=== PATIENT | female | born 1930 | race Caucasian/White ===

== ENCOUNTER 2016-11-11 02:05 | Emergency (ER) | payer MEDICARE, MEDICAID ==
[2016-11-11 02:25] VITALS: BP 157/87
[2016-11-11 02:53] LABS: CHLORIDE,CL 106 mmol/L (98-107); SODIUM,NA 142 mmol/L (136-145)
--- NOTE | 2016-11-11 03:30 | EDM.PDOC ---
ED HPI GENERAL MEDICAL PROBLEM - General Chief Complaint: Respiratory Problem Stated Complaint: Prior Hypoxia Time Seen by Provider: 11/11/16 02:15 Source of Information: Reports: Family, Long Term Records History Limitations: Reports: Altered Mental Status, Language Barrier - History of Present Illness INITIAL COMMENTS - FREE TEXT/NARRATIVE: Patient is a 86-year-old who was brought into the emergency room for evaluation status post Botox hypoxia her saturations were down in the higher 80s and because of this it was felt that the shelter that she should be reevaluated she was placed on 1 L oxygen and her saturations did improve to 96% at the shelter at this time we are concerned about her strong smell smelling urine multiple Calvin catheter attempts were done unsuccessful so therefore we discontinued the order Onset: Today, Sudden Duration: Hour(s): Severity: Mild Worsens with: Reports: None Context: Reports: Sick Contact Treatments [employer]: Reports: Oxygen - Related Data Allergies Allergy/AdvReac Type Severity Reaction Status Date / Time ciprofloxacin [From Cipro] Allergy Cannot Verified 11/11/16 02:13 Remember nitrofurantoin Allergy Cannot Verified 11/11/16 02:13 [From Macrodantin] Remember ED ROS GENERAL - Review of Systems Review Of Systems: See Below Constitutional: Reports: No Symptoms HEENT: Reports: No Symptoms Respiratory: Reports: Other (Hypoxia) Cardiovascular: Reports: No Symptoms Endocrine: Reports: No Symptoms GI/Abdominal: Reports: Anorexia, Constipation : Reports: Incontinence, Other (Stone urine smell) Musculoskeletal: Reports: Other (Patient unable to ambulate) Skin: Reports: No Symptoms Neurological: Reports: Weakness (Dementia), Other (Dementia) Psychiatric: Reports: Agitation, Anxiety, Confusion Hematologic/Lymphatic: Reports: No Symptoms Immunologic: Reports: No Symptoms ED EXAM, GENERAL - Physical Exam Exam: See Below Exam Limited By: Other (Patient is unable to communicate verbally) Ears: Normal External Exam, Normal Canal, Hearing Grossly Normal, Normal TMs Nose: Normal Inspection, Normal Mucosa, No Blood Throat/Mouth: Normal Inspection, Normal Lips, Normal Teeth, Normal Gums, Normal Oropharynx, Normal Voice, No Airway Compromise Head: Atraumatic, Normocephalic Neck: Normal Inspection, Supple, Non-Tender, Full Range of Motion Respiratory/Chest: Decreased Breath Sounds, Crackles Cardiovascular: Normal Peripheral Pulses, Regular Rate, Rhythm, No Edema, No Gallop, No JVD, No Murmur, No Rub GI/Abdominal: Normal Bowel Sounds (Female) Exam: Normal External Exam, Other (Difficulty placing a Clavin catheter) Rectal (Female) Exam: Deferred Back Exam: Normal Inspection, Full Range of Motion, NT Extremities: Other (Patient is very spastic) Neurological: Disoriented, Unresponsive Psychiatric: Flat Affect Skin Exam: Warm, Dry, Intact, Normal Color, No Rash Course - Vital Signs Last Recorded V/S: Last Vital Signs Temp 97.0 F 11/11/16 02:05 Pulse 59 L 11/11/16 02:05 Resp 20 11/11/16 02:05 BP 157/87 H 11/11/16 02:05 Pulse Ox 96 11/11/16 02:05 - Orders/Labs/Meds Orders: Active Orders 24 hr Category Date Time Status Insert Urinary Catheter [OM.PC] Q24H Care 11/11/16 02:30 Ordered Urinary Catheter Assessment [RC] ASDIRECTED Care 11/11/16 02:19 Active Chest 1V Frontal [CR] Stat Exams 11/11/16 02:16 Ordered CULTURE BLOOD [BC] Stat Lab 11/11/16 02:30 Received CULTURE URINE [RM] Stat Lab 11/11/16 02:17 Uncollected UA W/MICROSCOPIC [URIN] Stat Lab 11/11/16 02:17 Uncollected Labs: Laboratory Tests 11/11/16 11/11/16 Range/Units 02:30 02:30 WBC 8.9 (4.0-10.2) K/uL RBC 4.09 (3.77-5.09) M/uL Hgb 12.0 (11.7-15.5) g/dL Hct 38.3 (34.0-46.0) % MCV 93.6 (84.0-98.0) fL MCH 29.3 (28.2-33.3) pg MCHC 31.3 L (31.7-36.0) g/dL RDW 15.4 H (11.2-14.1) % Plt Count 230 (150-350) K/uL Neut % (Auto) 68.1 (45.0-80.0) % Lymph % (Auto) 23.0 (10.0-50.0) % [place] % (Auto) 6.8 (2.0-14.0) % Eos % (Auto) 2.0 (0.0-5.0) % Baso % (Auto) 0.1 (0.0-2.0) % Neut # (Auto) 6.08 (1.40-7.00) K/uL Lymph # (Auto) 2.06 (0.50-3.50) K/uL [place] # (Auto) 0.61 (0.00-1.00) K/uL Eos # (Auto) 0.18 (0.00-0.50) K/uL Baso # (Auto) 0.01 (0.00-0.20) K/uL Sodium 142 (136-145) mmol/L Potassium 3.9 (3.5-5.1) mmol/L Chloride 106 (98-107) mmol/L Carbon Dioxide 31.0 (21.0-32.0) mmol/L BUN 24 H (7-18) mg/dL Creatinine 0.69 (0.51-1.17) mg/dL Est Cr Clr Drug Dosing 48.67 mL/min Estimated GFR (MDRD) > 60 mL/min Glucose 93 (74-106) mg/dL Calcium 9.1 (8.5-10.1) mg/dL Departure - Departure Time of Disposition: 03:34 Disposition: Home, Self-Care 01 Clinical Impression: Pneumonia Qualifiers: Pneumonia type: aspiration pneumonia Laterality: left Lung location: unspecified part of lung - Discharge Information Referrals: Leonie Padlila MD [Primary Care Provider] - Care Plan Goals: Plan at this time we'll send her home on Y spectrum antibiotic there is a small infiltrate on the left lung which will go ahead and treat - My Orders Last 24 Hours: My Active Orders 11/11/16 02:16 Chest 1V Frontal [CR] Stat 11/11/16 02:17 CULTURE URINE [RM] Stat UA W/MICROSCOPIC [URIN] Stat 11/11/16 02:19 Urinary Catheter Assessment [RC] ASDIRECTED 11/11/16 02:30 Insert Urinary Catheter [OM.PC] Q24H CULTURE BLOOD [BC] Stat - Assessment/Plan Last 24 Hours: My Active Orders 11/11/16 02:16 Chest 1V Frontal [CR] Stat 11/11/16 02:17 CULTURE URINE [RM] Stat UA W/MICROSCOPIC [URIN] Stat 11/11/16 02:19 Urinary Catheter Assessment [RC] ASDIRECTED 11/11/16 02:30 Insert Urinary Catheter [OM.PC] Q24H CULTURE BLOOD [BC] Stat
[2016-11-11] MEDS ORDERED: Albuterol 0.021% 0.63 MG/3 ML Neb Soln NEB ONE (03:44)
== END 2016-11-11 05:15 | disposition home or self-care (01) ==
LOC: LL.ED 02:05
DX: J69.0 Pneumonitis due to inhalation of food and vomit (principal); Z88.0 Allergy status to penicillin
CPT/HCPCS: 36415; 71010; 80048; 85025; 87040; 94640; 99284; 99285